=== PATIENT | female | born 2000 | race Caucasian/White ===

== ENCOUNTER 2020-01-12 14:32 | Emergency (ER) | payer SELFPAY ==
[~2020-01-12] VITALS: Ht 167.6 cm; Wt 54.4 kg
--- NOTE | 2020-01-12 15:15 | NUR ---
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
--- NOTE | 2020-01-12 15:26 | NUR ---
IN TEARS. C/O OWER ABD CRAMPING; STARTED AT 0800 WHILE PLAYING VIDEO GAMES. MENSES STARTED TODAY. TYLENOL AT 1200. ETOH INTAKE LAST NOC. LAST ORAL INTAKE 1100 TODAY. VOMITED JANITOR AND CLEANER
[2020-01-12 15:31] LABS: BASOPHILS # (AUTO) 0.03 x10^3/uL (0-0.1); BASOPHILS % (AUTO) 0 % (0-1); EOSINOPHILS # (AUTO) 0.11 x10^3/uL (0-0.4); EOSINOPHILS % (AUTO) 1 % (1-7); LYMPHOCYTES # (AUTO) 2.07 x10^3/uL (1-3.4); LYMPHOCYTES % (AUTO) 21 % (22-44); MD NO; MEAN CORPUSCULAR HEMOGLOBIN 28.8 pg (27.0-34.8); MEAN CORPUSCULAR HGB CONC 33.2 g/dL (32.4-35.8); MEAN CORPUSCULAR VOLUME 86.7 fL (80-100); MEAN PLATELET VOLUME 7.7 fL (7.4-10.4); MONOCYTES # (AUTO) 0.56 x10^3/uL (0.2-0.8); MONOCYTES % (AUTO) 6 % (2-9); NEUTROPHILS # (AUTO) 7.28 x10^3/uL (1.8-6.8); NEUTROPHILS % (AUTO) 73 % (42-75); PLATELET COUNT 388 x10^3/uL (130-400); RED BLOOD COUNT 4.84 x10^6/uL (3.82-5.3); RED CELL DISTRIBUTION WIDTH 14.9 % (9.6-15.2)
--- NOTE | 2020-01-12 15:35 | NUR ---
PT AMBULATORY TO & FROM [facility] W/OUT INCIDENT, GAIT STEADY. VOIDED SPECIMEN PROVIDED: CLOUDY RED.
[2020-01-12 15:43] LABS: ALANINE AMINOTRANSFERASE 18 U/L (12-78); ANION GAP 9 mmol/L (5-15); CALCIUM 8.5 mg/dL (8.5-10.1); CHLORIDE 111 mmol/L (98-107)
[2020-01-12] MEDS ORDERED: KETOROLAC 30 MG/1 ML ONE (15:44)
[2020-01-12 15:48] LABS: ALKALINE PHOSPHATASE 67 U/L (45-117); BILIRUBIN,TOTAL 0.3 mg/dL (0.2-1.0); CREATININE 0.77 mg/dL (0.55-1.02); TOTAL PROTEIN 7.9 g/dL (6.4-8.2)
--- NOTE | 2020-01-12 15:54 | NUR ---
TORADOL GIVEN PER EMAR
--- NOTE | 2020-01-12 15:56 | NUR ---
TO U/S PER JIN
[2020-01-12] MEDS ORDERED: KETOROLAC 30 MG/1 ML IM ONE (16:00)
[2020-01-12] MEDS ORDERED: DIAZEPAM 2 MG TABLET PO ONE (16:00)
--- NOTE | 2020-01-12 16:47 | NUR ---
PT DOZING ON JIN. BROTHER IN ROOM.
[2020-01-12] MEDS ORDERED: HYDROcodone/APAP 5/325 TABLET ONE (17:21)
--- NOTE | 2020-01-12 17:25 | NUR ---
DR MEDRANO BS TO DISCUSS POC
--- NOTE | 2020-01-12 17:25 | NUR ---
PT MEDICATED PER EMAR
[2020-01-12 17:30] LABS: MICROSCOPIC INDICATED
[2020-01-12] MEDS ORDERED: HYDROcodone/APAP 5/325 TABLET PO ONE (18:00)
[2020-01-12 18:17] VITALS: BP 100/54
== END 2020-01-12 18:19 | disposition home or self-care (01) ==
LOC: ED 18:15
DX: N83.291 Other ovarian cyst, right side (principal); F17.290 Nicotine dependence, other tobacco product, uncomplicated
CPT/HCPCS: 36415; 76830; 80053; 81001; 83690; 84703; 85025; 87086; 96372; 99284; J1885

== ENCOUNTER 2020-02-11 07:49 | Emergency (ER) | payer SELFPAY ==
[~2020-02-11] VITALS: Ht 170.2 cm; Wt 52.8 kg
[2020-02-11 08:26] LABS: BASOPHILS # (AUTO) 0.05 x10^3/uL (0-0.1); BASOPHILS % (AUTO) 1 % (0-1); EOSINOPHILS # (AUTO) 0.13 x10^3/uL (0-0.4); EOSINOPHILS % (AUTO) 2 % (1-7); LYMPHOCYTES # (AUTO) 2.28 x10^3/uL (1-3.4); LYMPHOCYTES % (AUTO) 41 % (22-44); MD NO; MEAN CORPUSCULAR HEMOGLOBIN 28.4 pg (27.0-34.8); MEAN PLATELET VOLUME 7.4 fL (7.4-10.4); MONOCYTES # (AUTO) 0.54 x10^3/uL (0.2-0.8); MONOCYTES % (AUTO) 10 % (2-9); NEUTROPHILS # (AUTO) 2.56 x10^3/uL (1.8-6.8); NEUTROPHILS % (AUTO) 46 % (42-75); PLATELET COUNT 322 x10^3/uL (130-400); RED CELL DISTRIBUTION WIDTH 14.9 % (9.6-15.2)
[2020-02-11] MEDS ORDERED: ONDANSETRON 2MG/ML, 2ML IVPush ONE (08:30)
[2020-02-11] MEDS ORDERED: SODIUM CHLORIDE FLUSH 10ML SYR IVF ONE (08:30)
[2020-02-11] MEDS ORDERED: SODIUM CHLORIDE 0.9% 1,000ML IVBOLUS ONE (08:30)
[2020-02-11] MEDS ORDERED: ONDANSETRON 2MG/ML, 2ML ONE (08:33)
[2020-02-11 08:37] LABS: ALANINE AMINOTRANSFERASE 16 U/L (12-78); ANION GAP 7 mmol/L (5-15); CALCIUM 9.2 mg/dL (8.5-10.1); CHLORIDE 112 mmol/L (98-107); CREATININE 0.75 mg/dL (0.55-1.02)
[2020-02-11 08:39] LABS: ALKALINE PHOSPHATASE 67 U/L (45-117); BILIRUBIN,TOTAL 0.5 mg/dL (0.2-1.0); TOTAL PROTEIN 7.7 g/dL (6.4-8.2)
--- NOTE | 2020-02-11 08:43 | NUR ---
PT WITH C/O NAUSEA SINCE WAKING THIS AM APPROX 7A. PT CRYING IN RM NON STOP, ASKED WHAT IS BOTHERING PT THE MOST PAIN? PT STATES "NO IM NAUSEATED". PT ABLE TO AMBULATE TO BR WITH STEADY GAIT, UA SAMPLE COLLECTED AND SENT TO LAB. [place] [facility] [place] AND PT MEDICATED PER SEP. PT TO BP, CONT PULSE OX
[2020-02-11 08:53] LABS: HCG UR SG 1.027 (1.003-1.030)
[2020-02-11 08:54] LABS: MICROSCOPIC INDICATED
[2020-02-11] MEDS ORDERED: LORazepam 2 MG/ML, 1ML IVPush ONE (09:00)
[2020-02-11] MEDS ORDERED: KETOROLAC 30 MG/1 ML IVPush ONE (09:30)
[2020-02-11] MEDS ORDERED: DIAZEPAM 5 MG/ML, 10ML VIAL IV ONE (09:30)
[2020-02-11] MEDS ORDERED: KETOROLAC 30 MG/1 ML ONE (09:31)
[2020-02-11] MEDS ORDERED: DIAZEPAM 5 MG/ML, 2ML ONE (09:31)
[2020-02-11] MEDS ORDERED: HYDROmorphone 2 MG/ML, 1ML IVPush PRN (10:30)
[2020-02-11] MEDS ORDERED: HYDROmorphone 1 MG/ML, 1ML INJ ONE (10:50)
[2020-02-11] MEDS ORDERED: METOCLOPRAMIDE 5 MG/ML, 2ML ONE (10:51)
[2020-02-11 10:55] VITALS: BP 106/49
--- NOTE | 2020-02-11 10:56 | NUR ---
PT GIVEN ADDITIONAL PAIN MEDICATION PER MAR, PT CONTINUES TO BE RESTLESS/TEARING IN RM. BROTHER AT BEDSIDE. VSS
[2020-02-11] MEDS ORDERED: METOCLOPRAMIDE 5 MG/ML, 2ML IVPush ONE (11:00)
--- NOTE | 2020-02-11 11:26 | NUR ---
PT TO CT
[2020-02-11] MEDS ORDERED: OMNIPAQUE 350 MG/ML, 100ML BOTTLE ONE (11:30)
--- NOTE | 2020-02-11 12:28 | NUR ---
ERPROVIDER IN TO UPDATE PT ON POC, PLAN TO DC PT HOME.
[2020-02-12] MEDS ORDERED: PROM25SU35 PR (12:58)
[2020-02-12] MEDS ORDERED: CAPS57CR2 TP (12:58)
== END 2020-02-11 12:54 | disposition home or self-care (01) ==
LOC: ED 09:05
DX: G89.29 Other chronic pain (principal); R10.9 Unspecified abdominal pain; R11.2 Nausea with vomiting, unspecified; R10.13 Epigastric pain; R11.15 Cyclical vomiting syndrome unrelated to migraine
CPT/HCPCS: 36415; 74177; 76830; 80053; 81001; 81025; 83690; 85025; 87086; 96361; 96374; 96375; 99285; J1170; J1885; J2405; J2765; J7030; Q9967

== ENCOUNTER 2020-02-11 23:03 | Observation (INO) | payer SELFPAY ==
[~2020-02-11] VITALS: Ht 170.2 cm; Wt 53.4 kg
[2020-02-11] MEDS ORDERED: HALOPERIDOL 5 MG/ML ONE (23:27)
[2020-02-11] MEDS ORDERED: HALOPERIDOL 5 MG/ML IM ONE (23:30)
[2020-02-11 23:41] LABS: BASOPHILS # (AUTO) 0.04 x10^3/uL (0-0.1); BASOPHILS % (AUTO) 1 % (0-1); EOSINOPHILS % (AUTO) 0 % (1-7); LYMPHOCYTES # (AUTO) 0.99 x10^3/uL (1-3.4); LYMPHOCYTES % (AUTO) 12 % (22-44); MD NO; MEAN CORPUSCULAR HEMOGLOBIN 28.8 pg (27.0-34.8); MEAN CORPUSCULAR HGB CONC 33.8 g/dL (32.4-35.8); MEAN PLATELET VOLUME 7.8 fL (7.4-10.4); MONOCYTES # (AUTO) 0.19 x10^3/uL (0.2-0.8); MONOCYTES % (AUTO) 2 % (2-9); NEUTROPHILS # (AUTO) 7.06 x10^3/uL (1.8-6.8); NEUTROPHILS % (AUTO) 85 % (42-75); PLATELET COUNT 311 x10^3/uL (130-400); RED BLOOD COUNT 4.61 x10^6/uL (3.82-5.3)
[2020-02-11 23:50] LABS: ALANINE AMINOTRANSFERASE 22 U/L (12-78); ALBUMIN 3.9 g/dL (3.4-5.0); ANION GAP 12 mmol/L (5-15); CALCIUM 8.6 mg/dL (8.5-10.1); CHLORIDE 110 mmol/L (98-107); CREATININE 0.81 mg/dL (0.55-1.02)
[2020-02-11 23:52] LABS: ALKALINE PHOSPHATASE 68 U/L (45-117); BILIRUBIN,TOTAL 0.8 mg/dL (0.2-1.0); TOTAL PROTEIN 8.8 g/dL (6.4-8.2)
[2020-02-12] MEDS ORDERED: SODIUM CHLORIDE 0.9% 1,000ML IVBOLUS ONE (00:30)
[2020-02-12] MEDS ORDERED: SODIUM CHLORIDE FLUSH 10ML SYR IVF ONE (00:30)
[2020-02-12] MEDS ORDERED: POTASSIUM CHLORIDE 40 MEQ in LACTATED RINGERS 1,000 ML IV ONE ×2 (00:30→02:00)
--- NOTE | 2020-02-12 00:51 | NUR ---
report given to Davida RIVERA to assume care upon transfer to [facility]
[2020-02-12 01:30] VITALS: BP 91/49
[2020-02-12 02:00] VITALS: BP 91/49
[2020-02-12] MEDS ORDERED: PROMETHAZINE 25 MG/ML, 1ML IM PRN (04:30)
[2020-02-12] MEDS ORDERED: LABETALOL 5MG/ML, 20ML IVPush PRN (04:30)
[2020-02-12] MEDS ORDERED: ACETAMINOPHEN 325 MG TABLET PO PRN (04:30)
[2020-02-12] MEDS ORDERED: ONDANSETRON 2MG/ML, 2ML IVPush PRN (04:30)
[2020-02-12] MEDS ORDERED: GABAPENTIN 300 MG CAPSULE PO PRN (04:30)
[2020-02-12] MEDS: LACTATED RINGERS 1,000 ML IV SCH ×2 (05:41→17:00)
[2020-02-12 06:24] LABS: ANION GAP 6 mmol/L (5-15); CALCIUM 7.9 mg/dL (8.5-10.1); CHLORIDE 115 mmol/L (98-107); CREATININE 0.77 mg/dL (0.55-1.02)
[2020-02-12 06:30] LABS: AMPHETAMINE SCREEN, URINE Negative (Negative); BARBITURATE SCREEN, URINE Negative (Negative); BENZODIAZEPINE SCREEN, URINE Positive (Negative); CANNABINOID SCREEN, URINE Positive (Negative); COCAINE SCREEN, URINE Negative (Negative); METHADONE SCREEN, URINE Negative (Negative); OPIATE SCREEN, URINE Positive (Negative)
[2020-02-12 07:32] VITALS: BP 100/49
[2020-02-12] MEDS ORDERED: HALOPERIDOL 5 MG/ML IV PRN (08:30)
[2020-02-12] MEDS: CAPSAICIN CRM 0.075%, 60GM TP SCH ×2 (11:03→15:43)
[2020-02-12] MEDS ORDERED: CAPS57CR2 TP (12:58)
[2020-02-12] MEDS ORDERED: PROM25SU35 PR (12:58)
[2020-02-12 13:42] VITALS: BP 106/64
== END 2020-02-12 17:47 | disposition home or self-care (01) ==
LOC: ED 02-12 00:34 → INTOOBSV 02-12 00:44 → EDIP 02-12 00:44 → 4NW 02-12 01:05
PROVIDERS: ADMIT Family Medicine; ATTEND Internal Medicine
DX: K85.90 Acute pancreatitis without necrosis or infection, unspecified (principal); E87.6 Hypokalemia; E86.0 Dehydration; F12.29 Cannabis dependence with unspecified cannabis-induced disorder; Z79.899 Other long term (current) drug therapy
CPT/HCPCS: 36415; 80048; 80053; 80307; 83690; 83735; 85025; 96361; 96365; 96366; 96372; 99284; G0378; J1630; J3480; J7030; J7120

== ENCOUNTER 2021-02-16 10:34 | Inpatient (IN) | payer BC, OTHER ==
[~2021-02-16] VITALS: Ht 167.6 cm; Wt 48.5 kg
[~2021-02-16 10:34] MED LIST: CAPS57CR2 TP; PROM25SU35 PR
--- NOTE | 2021-02-16 10:59 | NUR ---
FIRST CONTACT: "I HAVE BEEN HAVING PAIN SINCE 0900 IN MY STOMACH. IT FEELS LIKE MY PANCREATITIS, I'VE HAD BEFORE". DR TIM TO BEDSIDE FOR EVALUATION. PT TO BED AND ATTACHED TO MONITORS. VSS. PT WITH SEVERE NAUSEA AND PAIN. AWAITING ORDERS. SISTER AT BEDSIDE
[2021-02-16] MEDS ORDERED: METOCLOPRAMIDE 5 MG/ML, 2ML IVPush ONE (11:00)
[2021-02-16] MEDS ORDERED: SODIUM CHLORIDE FLUSH 10ML SYR IVF ONE (11:00)
[2021-02-16] MEDS ORDERED: SODIUM CHLORIDE 0.9% 1,000ML IVBOLUS ONE (11:00)
[2021-02-16] MEDS ORDERED: DIPHENHYDRAMINE 50 MG/ML, 1ML IVPush ONE (11:00)
[2021-02-16] MEDS ORDERED: DIPHENHYDRAMINE 50 MG/ML, 1ML ONE (11:04)
[2021-02-16] MEDS ORDERED: MORPHINE SULFATE 4 MG/ML, 1ML ONE ×2 (11:05→13:46)
[2021-02-16] MEDS ORDERED: METOCLOPRAMIDE 5 MG/ML, 2ML ONE (11:05)
[2021-02-16] MEDS: MORPHINE SULFATE 4 MG/ML, 1ML IVPush PRN ×2 (11:12→13:51)
--- NOTE | 2021-02-16 11:14 | NUR ---
PT MEDICATED PER EMAR. VSS.
[2021-02-16 11:20] LABS: BASOPHILS % (AUTO) 1 % (0-1); EOSINOPHILS % (AUTO) 1 % (1-7); LYMPHOCYTES % (AUTO) 30 % (22-44); MEAN CORPUSCULAR HEMOGLOBIN 30.4 pg (27.0-34.8); MEAN PLATELET VOLUME 8.1 fL (7.4-10.4); MONOCYTES % (AUTO) 6 % (2-9); NEUTROPHILS % (AUTO) 62 % (42-75); PLATELET COUNT 413 x10^3/uL (130-400); RED BLOOD COUNT 5.58 x10^6/uL (3.82-5.3); RED CELL DISTRIBUTION WIDTH 13.4 % (9.6-15.2)
[2021-02-16 11:32] LABS: CHLORIDE 108 mmol/L (98-107)
[2021-02-16 11:44] LABS: ALANINE AMINOTRANSFERASE 20 U/L (12-78); ALBUMIN 4.8 g/dL (3.4-5.0); ALKALINE PHOSPHATASE 81 U/L (45-117); ANION GAP 10 mmol/L (5-15); BILIRUBIN,TOTAL 1.5 mg/dL (0.2-1.0); CALCIUM 9.9 mg/dL (8.5-10.1); CREATININE 0.77 mg/dL (0.55-1.02); TOTAL PROTEIN 8.9 g/dL (6.4-8.2)
--- NOTE | 2021-02-16 11:54 | NUR ---
PT ASLEEP WITH EVEN AND UNLABORED RESPIRATIONS. FABRIZIO. PIO.
[2021-02-16] MEDS ORDERED: PROMETHAZINE 25 MG/ML, 1ML IM ONE (13:30)
[2021-02-16] MEDS ORDERED: MORPHINE SULFATE 4 MG/ML, 1ML IVPush ONE (13:30)
[2021-02-16] MEDS ORDERED: PROMETHAZINE 25 MG/ML, 1ML ONE (13:46)
--- NOTE | 2021-02-16 13:56 | NUR ---
TASK RN: PT MEDICATED PER MAR.
--- NOTE | 2021-02-16 15:21 | NUR ---
pt was to be d/c however is now req to stay r/t n/v. Dr. mendieta had given the pt the choice. Dr. Tuttle notifed.
[2021-02-16] MEDS ORDERED: SODIUM CHLORIDE FLUSH 10ML SYR IVF PRN (16:00)
[2021-02-16] MEDS ORDERED: LORazepam 2 MG/ML, 1ML IV PRN (18:00)
[2021-02-16] MEDS ORDERED: SODIUM CHLORIDE 0.9% 1,000 ML IV SCH (18:00)
[2021-02-16] MEDS: ONDANSETRON 2MG/ML, 2ML IVPush PRN (18:14)
[2021-02-16] MEDS: morphine SULFATE 10 MG/ML, 1ML IVPush PRN (18:19)
[2021-02-16] MEDS ORDERED: POTASSIUM CHLORIDE 40 MEQ in SODIUM CHLORIDE 0.9% 500 ML IV ONE (18:23)
[2021-02-16 19:58] VITALS: BP 123/67
[2021-02-16] MEDS: FAMOTIDINE 20 MG/2 ML IVPush SCH (20:12)
[2021-02-17 00:15] VITALS: BP 105/59
[2021-02-17] MEDS: ONDANSETRON 2MG/ML, 2ML IVPush PRN ×3 (00:36→14:37)
[2021-02-17] MEDS: morphine SULFATE 10 MG/ML, 1ML IVPush PRN ×3 (00:36→14:38)
[2021-02-17 05:53] LABS: BASOPHILS % (AUTO) 0 % (0-1); EOSINOPHILS % (AUTO) 0 % (1-7); LYMPHOCYTES % (AUTO) 13 % (22-44); MEAN CORPUSCULAR HEMOGLOBIN 30.6 pg (27.0-34.8); MEAN CORPUSCULAR HGB CONC 34.2 g/dL (32.4-35.8); MEAN PLATELET VOLUME 7.9 fL (7.4-10.4); MONOCYTES % (AUTO) 6 % (2-9); NEUTROPHILS % (AUTO) 80 % (42-75); PLATELET COUNT 325 x10^3/uL (130-400); RED BLOOD COUNT 4.68 x10^6/uL (3.82-5.3); RED CELL DISTRIBUTION WIDTH 13.4 % (9.6-15.2)
[2021-02-17 06:07] LABS: CHLORIDE 111 mmol/L (98-107)
[2021-02-17 06:16] LABS: ALANINE AMINOTRANSFERASE 20 U/L (12-78); ALBUMIN 3.9 g/dL (3.4-5.0); ALKALINE PHOSPHATASE 68 U/L (45-117); ANION GAP 12 mmol/L (5-15); BILIRUBIN,TOTAL 0.9 mg/dL (0.2-1.0); CALCIUM 9.2 mg/dL (8.5-10.1); CREATININE 0.69 mg/dL (0.55-1.02); TOTAL PROTEIN 7.6 g/dL (6.4-8.2)
[2021-02-17] MEDS: FAMOTIDINE 20 MG/2 ML IVPush SCH ×2 (07:24→20:30)
[2021-02-17] MEDS: SODIUM CHLORIDE 0.9% 1,000 ML IV SCH ×3 (08:09→20:35)
[2021-02-17 08:57] VITALS: BP 104/61
[2021-02-17 13:39] VITALS: BP 106/63
[2021-02-17 19:37] VITALS: BP 107/65
[2021-02-17] MEDS ORDERED: MELATONIN 5 MG TABLET PO PRN (23:00)
== END 2021-02-18 00:38 | disposition left against medical advice (07) | DRG 391 ==
LOC: ED 11:04 → 3N 16:50 → ED 18:09
PROVIDERS: ADMIT Family Medicine; ATTEND Internal Medicine
DX: K29.20 Alcoholic gastritis without bleeding (principal); K85.20 Alcohol induced acute pancreatitis without necrosis or infection; F12.90 Cannabis use, unspecified, uncomplicated; E87.6 Hypokalemia; Z53.29 Procedure and treatment not carried out because of patient's decision for other reasons
CPT/HCPCS: 36415; 80053; 83690; 84702; 84703; 85025; 96374; 96375; G0378; J2405; J2550; J3480; J1200; J2060; J2270; J2765; J7030; J7040

== ENCOUNTER 2021-04-10 01:45 | Emergency (ER) | payer OTHER ==
[~2021-04-10] VITALS: Ht 167.6 cm; Wt 46.5 kg
[2021-04-10 01:57] VITALS: BP 117/70
[2021-04-10] MEDS ORDERED: ONDANSETRON 2MG/ML, 2ML IVPush ONE (02:30)
[2021-04-10] MEDS ORDERED: MAALOX/HYOSCYAMINE/LIDOCAINE 45 ML BTL PO ONE (02:30)
[2021-04-10] MEDS ORDERED: FAMOTIDINE 20 MG/2 ML IVPush ONE (02:30)
[2021-04-10] MEDS ORDERED: SODIUM CHLORIDE FLUSH 10ML SYR IVF ONE (02:30)
[2021-04-10] MEDS ORDERED: SODIUM CHLORIDE 0.9% 1,000ML IVBOLUS ONE (02:30)
== END 2021-04-10 03:21 | disposition left against medical advice (07) ==
LOC: ED 02:00
DX: R10.13 Epigastric pain (principal); R11.2 Nausea with vomiting, unspecified
CPT/HCPCS: 99281